=== PATIENT | female | born 1950 | race Caucasian/White ===

== ENCOUNTER 2024-01-24 22:00 | Inpatient (IN) | payer OTHER ==
[~2024-01-24] VITALS: Ht 167.6 cm; Wt 94.6 kg
[2024-01-24 22:03] VITALS: BP 130/53
[2024-01-24 23:05] LABS: BASO % 0.2 % (0.0-1.0); EOS # 0.2 10*3/uL (0.0-0.4); EOS % 1.4 % (1.0-4.0); LYMPH # 0.5 10*3/uL (1.3-4.4); LYMPH % 4.4 % (27.0-41.0); MEAN CELL VOLUME 88.3 fl (81.0-99.0); MEAN CORPUSCULAR HGB 26.5 pg (27.0-31.0); MEAN PLATELET VOLUME 9.4 fl (9.6-12.3); MONO # 0.5 10*3/uL (0.1-1.0); MONO % 5.2 % (3.0-9.0); NEUT # 9.1 10*3/uL (2.3-7.9); NEUT % 88.4 % (47.0-73.0); PLATELET COUNT AUTOMATED 207 10*3/uL (130-400); RED BLOOD COUNT 3.17 10*6/uL (4.10-5.10); RED CELL DISTRI WIDTH 14.7 % (0-14.5); WHITE BLOOD COUNT 10.4 10*3/uL (4.8-10.8)
[2024-01-24 23:27] LABS: ALKALINE PHOSPHATASE 188 U/L (46-116); BUN 25 mg/dl (9-23); CHLORIDE 97 mmol/L (98-107); POTASSIUM 4.1 mmol/L (3.4-5.1); SGPT/ALT 11 U/L (5-49); TOTAL PROTEIN 8.1 gm/dL (6.0-8.0)
[2024-01-25] VITALS (7 sets, daily range): BP systolic 94–108; BP diastolic 35–52
[2024-01-25] MEDS ORDERED: TYLENOL325 M1 PO (00:16)
[2024-01-25] MEDS ORDERED: ASPIRIN81 M1 PO (00:17)
[2024-01-25] MEDS ORDERED: LIPITOR40 MG PO (00:21)
[2024-01-25] MEDS ORDERED: BISACODYL10 MG R (00:22)
[2024-01-25] MEDS ORDERED: DILANTIN100 MG PO (00:23)
[2024-01-25] MEDS ORDERED: DOCUSATE SODIU100 M3 PO (00:24)
[2024-01-25] MEDS ORDERED: IRON325 M1 PO (00:25)
[2024-01-25] MEDS ORDERED: FUROSEMIDE40 MG PO (00:26)
[2024-01-25] MEDS ORDERED: HUMULIN 70100 UNIT/1 SQ (00:28)
[2024-01-25] MEDS ORDERED: LANTUS SOL100 UNIT/1 SC (00:30)
[2024-01-25] MEDS ORDERED: Ipratropium Brom3 ML INH (00:30)
[2024-01-25] MEDS ORDERED: MELATONIN3 MG PO (00:31)
[2024-01-25] MEDS ORDERED: MIDODRINE HCL5 M1 PO (00:31)
[2024-01-25] MEDS ORDERED: MILK OF MA400 MG/52 PO (00:34)
[2024-01-25] MEDS ORDERED: MIRALAX17 GM PO (00:35)
[2024-01-25] MEDS ORDERED: OXYCODONE5 M1 PO (00:36)
[2024-01-25] MEDS ORDERED: SENNA8.6 MG PO (00:43)
[2024-01-25] MEDS ORDERED: SERTRALINE HYD100 MG PO (00:43)
[2024-01-25] MEDS ORDERED: XARE20MG PO (00:44)
[2024-01-25] MEDS ORDERED: VISTARIL25 MG PO (00:44)
[2024-01-25] MEDS ORDERED: FUROSEMIDE 20 MG/2 ML VIAL IV ONE (01:30)
[2024-01-25] MEDS ORDERED: LEVOFLOXACIN 150 ML IV ONE (01:30)
[2024-01-25] MEDS ORDERED: Albuterol Sulf/Ipratropium 3 ML VIAL NEB SCH (01:45)
[2024-01-25] MEDS ORDERED: Ondansetron Hydrochloride 4 MG/2 ML VIAL IV PRN (01:45)
[2024-01-25] MEDS ORDERED: Albuterol Sulfate 2.5 MG/3 ML VIAL NEB SCH (01:45)
[2024-01-25] MEDS ORDERED: ACETAMINOPHEN 650 MG SUPP R PRN (01:45)
[2024-01-25] MEDS ORDERED: BISACODYL 10 MG SUPP R PRN (01:45)
[2024-01-25] MEDS ORDERED: MORPHINE Sulfate 2 MG/ML SYR IV PRN (01:45)
[2024-01-25] MEDS ORDERED: DEXTROSE 10 % IN WATER 250 ML IV PRN (02:00)
[2024-01-25] MEDS ORDERED: Vancomycin Hydrochloride 1,000 MG in SODIUM CHLORIDE 0.9% 250 ML IV SCH (02:00)
[2024-01-25] MEDS ORDERED: LAC-HYDRIN FIV226 GM T (02:35)
[2024-01-25] MEDS ORDERED: PROTONIX40 MG PO (02:47)
[2024-01-25] MEDS ORDERED: Vancomycin Hydrochloride 2,000 MG in SODIUM CHLORIDE 0.9% 500 ML IV ONE (03:30)
[2024-01-25] MEDS ORDERED: FUROSEMIDE 40 MG/4 ML VIAL IV SCH (06:00)
[2024-01-25] MEDS ORDERED: hydrOXYzine pamoate 25 MG CAP PO PRN (06:00)
[2024-01-25] MEDS ORDERED: Pantoprazole Sodium 40 MG VIAL IV SCH (06:00)
[2024-01-25 06:03] LABS: BASO % 0.4 % (0.0-1.0); EOS # 0.2 10*3/uL (0.0-0.4); EOS % 2.3 % (1.0-4.0); HEMATOCRIT 24.6 % (37.0-47.0); LYMPH # 0.8 10*3/uL (1.3-4.4); LYMPH % 10.6 % (27.0-41.0); MEAN CORPUSCULAR HGB 25.9 pg (27.0-31.0); MEAN CORPUSCULAR HGB CONC 30.1 g/dl (33.0-37.0); MEAN PLATELET VOLUME 9.5 fl (9.6-12.3); MONO # 0.6 10*3/uL (0.1-1.0); MONO % 7.4 % (3.0-9.0); NEUT # 6.2 10*3/uL (2.3-7.9); PLATELET COUNT AUTOMATED 190 10*3/uL (130-400); RED BLOOD COUNT 2.86 10*6/uL (4.10-5.10); RED CELL DISTRI WIDTH 14.7 % (0-14.5); WHITE BLOOD COUNT 7.9 10*3/uL (4.8-10.8)
[2024-01-25 06:27] LABS: ACT PARTIAL THROMBO TIME 36.4 SECONDS (20.0-32.1)
[2024-01-25 06:32] LABS: ALKALINE PHOSPHATASE 162 U/L (46-116); BUN 25 mg/dl (9-23); CHLORIDE 98 mmol/L (98-107); FREE T4 0.59 ng/dl (0.89-1.76); POTASSIUM 3.8 mmol/L (3.4-5.1); SGPT/ALT 9 U/L (5-49); TOTAL PROTEIN 7.2 gm/dL (6.0-8.0)
[2024-01-25] MEDS ORDERED: MAGNESIUM SULFATE 50 ML IV ONE (07:10)
[2024-01-25 07:16] LABS: BILIRUBIN Negative (Negative); BLOOD Negative (Negative); CLARITY Clear (Clear); COLOR Yellow (Yellow); GLUCOSE Negative (Negative); KETONE Negative (Negative); LEUKO ESTERASE Negative (Negative); NITRITE Negative (Negative); PH 6.5 (4.5-8.0); UROBILINOGEN 0.2 E.U./dl (0.0-1.0)
[2024-01-25] MEDS ORDERED: INSULIN LISPRO 1 UNIT/0.01 ML SQ SCH (07:30)
[2024-01-25 08:04] LABS: ABG BASE EXCESS 11.8 mmol/L (-2.0-2.0); ARTERIAL BLOOD GAS PH 7.52 (7.35-7.45)
[2024-01-25 08:25] LABS: HYALINE CAST 0-2; WBC 0-2 wbc/hpf (0-5)
[2024-01-25] MEDS ORDERED: SODIUM CHLORIDE 0.9% 500 ML BAG IV ONE (09:18)
[2024-01-25] MEDS ORDERED: Vancomycin Hydrochloride 1,000 MG VIAL IV ONE (09:18)
[2024-01-25] MEDS ORDERED: LORazepam 1 MG TAB SL PRN (09:30)
[2024-01-25] MEDS ORDERED: Midodrine Hydrochloride 5 MG TAB PO SCH (10:00)
[2024-01-25] MEDS ORDERED: ASPIRIN, CHEWABLE 81 MG TAB PO SCH (10:00)
[2024-01-25] MEDS ORDERED: ATORVASTATIN CALCIUM 40 MG TABLET PO SCH (10:00)
[2024-01-25] MEDS ORDERED: Sertraline Hydrochloride 50 MG TAB PO SCH (10:00)
[2024-01-25] MEDS ORDERED: PHENYTOIN 100 MG/4 ML UDC PO SCH (10:00)
[2024-01-25] MEDS ORDERED: Menthol/Zinc Oxide 4 GM THIN T PRN (13:30)
[2024-01-25] MEDS ORDERED: RIVAROXABAN 20 MG TAB PO SCH (18:00)
[2024-01-25] MEDS ORDERED: Menthol/Zinc Oxide 4 GM THIN T SCH (22:00)
[2024-01-25] MEDS ORDERED: VANCOMYCIN/WATER FOR INJ (PEG) 250 ML IV SCH (22:00)
[2024-01-25] MEDS ORDERED: Melatonin 3 MG TABLET PO SCH (22:00)
[2024-01-25] MEDS ORDERED: LEVOFLOXACIN 150 ML IV SCH (22:00)
[2024-01-26] VITALS: BP 104/53
[2024-01-26 04:00] VITALS: BP 105/46
[2024-01-26 06:00] LABS: BASO % 0.5 % (0.0-1.0); EOS # 0.2 10*3/uL (0.0-0.4); EOS % 3.1 % (1.0-4.0); HEMATOCRIT 24.5 % (37.0-47.0); LYMPH # 0.7 10*3/uL (1.3-4.4); MEAN CORPUSCULAR HGB 26.7 pg (27.0-31.0); MEAN PLATELET VOLUME 9.8 fl (9.6-12.3); MONO # 0.6 10*3/uL (0.1-1.0); MONO % 9.1 % (3.0-9.0); NEUT # 4.5 10*3/uL (2.3-7.9); PLATELET COUNT AUTOMATED 168 10*3/uL (130-400); RED BLOOD COUNT 2.85 10*6/uL (4.10-5.10); WHITE BLOOD COUNT 6.1 10*3/uL (4.8-10.8)
[2024-01-26 06:17] LABS: ALKALINE PHOSPHATASE 144 U/L (46-116); BUN 22 mg/dl (9-23); CHLORIDE 96 mmol/L (98-107); POTASSIUM 3.7 mmol/L (3.4-5.1); SGPT/ALT 8 U/L (5-49)
[2024-01-26 08:00] VITALS: BP 95/47
[2024-01-26 12:00] VITALS: BP 119/63
[2024-01-26 16:00] VITALS: BP 95/53
[2024-01-26 20:00] VITALS: BP 100/47
[2024-01-26] MEDS ORDERED: Midodrine Hydrochloride 5 MG TAB PO SCH (22:00)
[2024-01-27] VITALS: BP 127/49
[2024-01-27 04:00] VITALS: BP 119/47
[2024-01-27] MEDS ORDERED: Pantoprazole Sodium 40 MG TAB PO SCH (06:00)
[2024-01-27 06:14] LABS: ALKALINE PHOSPHATASE 144 U/L (46-116); BUN 21 mg/dl (9-23); CHLORIDE 94 mmol/L (98-107); POTASSIUM 3.6 mmol/L (3.4-5.1); SGPT/ALT 9 U/L (5-49); TOTAL PROTEIN 7.1 gm/dL (6.0-8.0)
[2024-01-27 06:30] LABS: BASO % 0.5 % (0.0-1.0); EOS # 0.2 10*3/uL (0.0-0.4); HEMATOCRIT 24.8 % (37.0-47.0); LYMPH # 0.9 10*3/uL (1.3-4.4); LYMPH % 15.3 % (27.0-41.0); MEAN CELL VOLUME 85.8 fl (81.0-99.0); MEAN CORPUSCULAR HGB 26.3 pg (27.0-31.0); MEAN CORPUSCULAR HGB CONC 30.6 g/dl (33.0-37.0); MEAN PLATELET VOLUME 9.9 fl (9.6-12.3); MONO # 0.7 10*3/uL (0.1-1.0); PLATELET COUNT AUTOMATED 165 10*3/uL (130-400); RED BLOOD COUNT 2.89 10*6/uL (4.10-5.10); RED CELL DISTRI WIDTH 15.3 % (0-14.5); WHITE BLOOD COUNT 5.8 10*3/uL (4.8-10.8)
[2024-01-27 07:25] LABS: ABG BASE EXCESS 8.2 mmol/L (-2.0-2.0); ARTERIAL BLOOD GAS PH 7.462 (7.35-7.45)
[2024-01-27 08:00] VITALS: BP 93/50
[2024-01-27] MEDS ORDERED: Midazolam Hydrochloride 5 MG/5 ML VIAL ONE (09:43)
[2024-01-27] MEDS ORDERED: FERROUS SULFATE 325 MG TAB PO SCH (10:00)
[2024-01-27 12:00] VITALS: BP 106/46
[2024-01-27] MEDS ORDERED: Humalog SQ (13:17)
[2024-01-27] MEDS ORDERED: VIBRAMYCIN HYC100 MG PO (13:17)
[2024-01-27] MEDS ORDERED: REMEDY CALAZIME4 GM T (13:17)
[2024-01-27] MEDS ORDERED: OXYCODONE5 M1 PO (13:17)
[2024-01-27] MEDS ORDERED: BUSPIRONE HCL7.5 MG PO (13:17)
[2024-01-27] MEDS ORDERED: busPIRone Hydrochloride 7.5 MG TAB PO SCH (22:00)
[2024-01-28] MEDS ORDERED: Vancomycin Hydrochloride 1,000 MG in SODIUM CHLORIDE 0.9% 250 ML IV SCH (06:00)
[2024-01-28 09:08] LABS: ACID FAST SPEC PROCESSING Concentration (.)
== END 2024-01-27 16:00 | DRG 133 ==
LOC: ED 22:00 → EDHOLD 01-25 01:25 → ICCU 01-25 01:25
PROVIDERS: Emergency Medicine; Internal Medicine; Internal Medicine Critical Care Medicine; Student in an Organized Health Care Education/Training Program; ADMIT Family Medicine; ATTEND Family Medicine
PROC: 5A1945Z Respiratory Ventilation, 24-96 Consecutive Hours (ICD-10-PCS; principal; 2024-01-25)
PROC: 0BC98ZZ Extirpation of Matter from Lingula Bronchus, Via Natural or Artificial Opening Endoscopic (ICD-10-PCS; 2024-01-27)
PROC: 0BC48ZZ Extirpation of Matter from Right Upper Lobe Bronchus, Via Natural or Artificial Opening Endoscopic (ICD-10-PCS; 2024-01-27)
PROC: 0BC88ZZ Extirpation of Matter from Left Upper Lobe Bronchus, Via Natural or Artificial Opening Endoscopic (ICD-10-PCS; 2024-01-27)
PROC: 0BC58ZZ Extirpation of Matter from Right Middle Lobe Bronchus, Via Natural or Artificial Opening Endoscopic (ICD-10-PCS; 2024-01-27)
PROC: 0BC38ZZ Extirpation of Matter from Right Main Bronchus, Via Natural or Artificial Opening Endoscopic (ICD-10-PCS; 2024-01-27)
PROC: 0BC78ZZ Extirpation of Matter from Left Main Bronchus, Via Natural or Artificial Opening Endoscopic (ICD-10-PCS; 2024-01-27)
PROC: 0BC68ZZ Extirpation of Matter from Right Lower Lobe Bronchus, Via Natural or Artificial Opening Endoscopic (ICD-10-PCS; 2024-01-27)
PROC: 0BCB8ZZ Extirpation of Matter from Left Lower Lobe Bronchus, Via Natural or Artificial Opening Endoscopic (ICD-10-PCS; 2024-01-27)
PROC: 0BC18ZZ Extirpation of Matter from Trachea, Via Natural or Artificial Opening Endoscopic (ICD-10-PCS; 2024-01-27)
DX: J96.21 Acute and chronic respiratory failure with hypoxia (principal); J95.851 Ventilator associated pneumonia; G93.41 Metabolic encephalopathy; E44.0 Moderate protein-calorie malnutrition; J18.9 Pneumonia, unspecified organism; T17.590A Other foreign object in bronchus causing asphyxiation, initial encounter; J44.0 Chronic obstructive pulmonary disease with (acute) lower respiratory infection; J44.9 Chronic obstructive pulmonary disease, unspecified; I50.23 Acute on chronic systolic (congestive) heart failure; S81.801A Unspecified open wound, right lower leg, initial encounter; S81.802A Unspecified open wound, left lower leg, initial encounter; Z93.0 Tracheostomy status; D64.9 Anemia, unspecified; I25.10 Atherosclerotic heart disease of native coronary artery without angina pectoris; F32.A Depression, unspecified; E78.5 Hyperlipidemia, unspecified; G40.909 Epilepsy, unspecified, not intractable, without status epilepticus; E11.51 Type 2 diabetes mellitus with diabetic peripheral angiopathy without gangrene; F41.9 Anxiety disorder, unspecified; J96.22 Acute and chronic respiratory failure with hypercapnia; G47.00 Insomnia, unspecified; E11.65 Type 2 diabetes mellitus with hyperglycemia; E87.8 Other disorders of electrolyte and fluid balance, not elsewhere classified; E11.22 Type 2 diabetes mellitus with diabetic chronic kidney disease; J98.11 Atelectasis; G47.33 Obstructive sleep apnea (adult) (pediatric); X58.XXXA Exposure to other specified factors, initial encounter; Y93.89 Activity, other specified; Z87.891 Personal history of nicotine dependence; Y92.89 Other specified places as the place of occurrence of the external cause; Y99.8 Other external cause status; Z88.0 Allergy status to penicillin; Z91.041 Radiographic dye allergy status; Z88.2 Allergy status to sulfonamides; Z88.8 Allergy status to other drugs, medicaments and biological substances; Z79.82 Long term (current) use of aspirin; Z79.1 Long term (current) use of non-steroidal anti-inflammatories (NSAID); Z79.899 Other long term (current) drug therapy; Z79.01 Long term (current) use of anticoagulants; Z82.49 Family history of ischemic heart disease and other diseases of the circulatory system; Z95.1 Presence of aortocoronary bypass graft; Z79.4 Long term (current) use of insulin

== ENCOUNTER 2024-02-12 14:57 | Emergency (ER) | payer BC ==
[~2024-02-12] VITALS: Wt 91.1 kg
[~2024-02-12 14:57] MED LIST: ASPIRIN81 M1 PO; BISACODYL10 MG R; BUSPIRONE HCL7.5 MG PO; DILANTIN100 MG PO; DOCUSATE SODIU100 M3 PO; FUROSEMIDE40 MG PO; HUMULIN 70100 UNIT/1 SQ; Humalog SQ; IRON325 M1 PO; Ipratropium Brom3 ML INH; LAC-HYDRIN FIV226 GM T; LANTUS SOL100 UNIT/1 SC; LIPITOR40 MG PO; MELATONIN3 MG PO; MIDODRINE HCL5 M1 PO; MILK OF MA400 MG/52 PO; MIRALAX17 GM PO; OXYCODONE5 M1 PO; PROTONIX40 MG PO; REMEDY CALAZIME4 GM T; SENNA8.6 MG PO; SERTRALINE HYD100 MG PO; TYLENOL325 M1 PO; VIBRAMYCIN HYC100 MG PO; VISTARIL25 MG PO; XARE20MG PO
[2024-02-12 15:28] LABS: HEMATOCRIT 31.4 % (37.0-47.0); MEAN CELL VOLUME 93.2 fl (81.0-99.0); MEAN CORPUSCULAR HGB 25.8 pg (27.0-31.0); MEAN CORPUSCULAR HGB CONC 27.7 g/dl (33.0-37.0); MEAN PLATELET VOLUME 9.6 fl (9.6-12.3); PLATELET COUNT AUTOMATED 368 10*3/uL (130-400); RED BLOOD COUNT 3.37 10*6/uL (4.10-5.10); WHITE BLOOD COUNT 15.2 10*3/uL (4.8-10.8)
[2024-02-12 15:31] LABS: MANUAL DIFF REFLEX YES
[2024-02-12 15:47] LABS: ALKALINE PHOSPHATASE 213 U/L (46-116); BUN 14 mg/dl (9-23); CHLORIDE 100 mmol/L (98-107); POTASSIUM 4.2 mmol/L (3.4-5.1); SGPT/ALT 45 U/L (5-49)
[2024-02-12 16:10] LABS: BASOPHILS 2 % (0-1); PLATELET SUFFICIENCY NORMAL (NORMAL); TOTAL CELLS COUNTED 100 #CELLS
[2024-02-12 16:11] LABS: BURR CELLS FEW
[2024-02-12] MEDS ORDERED: fentaNYL CITRATE 100 MCG/2 ML VIAL IV ONE (16:45)
[2024-02-12] MEDS ORDERED: DEXMEDETOMIDINE IN 0.9 % NACL 100 ML IV SCH (16:50)
[2024-02-12] MEDS ORDERED: VANCOMYCIN/WATER FOR INJ (PEG) 300 ML IV ONE (17:50)
[2024-02-12] MEDS ORDERED: LEVOFLOXACIN 150 ML IV ONE (17:50)
[2024-02-12] MEDS ORDERED: HEPARIN SODIUM 250 ML IV SCH (17:55)
[2024-02-12] MEDS ORDERED: SODIUM CHLORIDE 0.9% 1,000 ML IV SCH (20:00)
[2024-02-12] MEDS ORDERED: NOREPINEPHRINE BITARTRATE/D5W 250 ML IV SCH (20:00)
[2024-02-12] MEDS ORDERED: SODIUM CHLORIDE 0.9% 1,000 ML IV ONE (20:10)
[2024-02-15] MEDS ORDERED: EPINEPHrine Hydrochloride 1 MG/10 ML SYR IV ONE (14:22)
[2024-02-15] MEDS ORDERED: SODIUM BICARBONATE 50 MEQ/50 ML SYR IV ONE (14:22)
== END 2024-02-13 00:03 | disposition short-term general hospital (02) ==
LOC: ED 14:57
PROVIDERS: Internal Medicine
DX: I46.9 Cardiac arrest, cause unspecified (principal); J96.00 Acute respiratory failure, unspecified whether with hypoxia or hypercapnia; J18.9 Pneumonia, unspecified organism; Z91.041 Radiographic dye allergy status; Z88.0 Allergy status to penicillin; Z88.1 Allergy status to other antibiotic agents; Z88.8 Allergy status to other drugs, medicaments and biological substances; Z88.2 Allergy status to sulfonamides; Z79.899 Other long term (current) drug therapy; Z79.2 Long term (current) use of antibiotics; Z79.82 Long term (current) use of aspirin; Z79.4 Long term (current) use of insulin; Z87.891 Personal history of nicotine dependence; Z98.61 Coronary angioplasty status